=== PATIENT | male | born 1965 | race Caucasian/White ===

== ENCOUNTER 2018-12-09 04:45 | Observation (INO) | payer BC, OTHER ==
[~2018-12-09] VITALS: Ht 180.3 cm; Wt 97.1 kg
[2018-12-09 04:47] VITALS: BP 138/63
--- NOTE | 2018-12-09 04:48 | NUR ---
PT AMBULATED TO ER BED 3
--- NOTE | 2018-12-09 04:48 | NUR ---
53/M BIB , C/O 07/21 INTERMITTENT L UPPER CP. ALSO C/O ACHING L ARM PAIN. DENIES SOB, N/V. PT AOX4, GCS 15, PT WITH EXCESSIVE SPEECH, SKIN NORMAL WARM DRY, RR EVEN AND UNLABORED. LUNG SOUNDS CLEAR BL. HR EVEN AND REGULAR. DENIES MED HX; REPORTS RECENT FLU; FINISHED RX Z-PACK; RX TESTOSTERONE EVERY WEEK; DENIES OTC REPORTS FEELING STRESSED RECENTLY; OCCASIONAL ALCOHOL, CAFFEINE, AND COCAINE USE; RECENT HEAVY LIFTING 4 DAYS AGO
--- NOTE | 2018-12-09 05:00 | NUR ---
DR MONTGOMERY AT BEDSIDE
[2018-12-09] MEDS ORDERED: NACL 0.9% 1,000 ML IV ONE (05:15)
[2018-12-09 05:54] LABS: BARBITURATE, URINE NEG. ng/ml (NEG <=200); BENZODIAZEPINE, URINE NEG. ng/mL (NEG <=200); CANNABINOID, URINE NEG. ng/mL (NEG <=50); COCAINE, URINE NEG. ng/mL (NEG <=300); OPIATE, URINE NEG. ng/mL (NEG <=2000); PHENCYCLIDINE SCREEN,URINE NEG. ng/mL (NEG <=25)
[2018-12-09 06:01] LABS: ANION GAP 12.5 (8-16); CARBON DIOXIDE 27.5 mmol/L (21-32)
[2018-12-09 06:09] LABS: ALBUMIN 3.7 g/dL (3.4-5.0); TOTAL BILIRUBIN 0.5 mg/dL (0.0-1.0)
--- NOTE | 2018-12-09 07:09 | NUR ---
Pt report given to KATHERIN COELHO. Transfer of care at this time.
--- NOTE | 2018-12-09 07:15 | NUR ---
PT ASLEEP. EASILY AROUSABLE BY NAME. AAOX4, FULL CLEAR SPEECH. NO SIGNS AND SYMPTOMS OF DISTRESS NOTED. WILL CONTINUE TO MONITOR.
--- NOTE | 2018-12-09 09:00 | NUR ---
CALLED LAB SPOKE TO JD FOR LAB WORK F/U
[2018-12-09 09:12] LABS: BASOPHILS % (AUTO) 0.6 % (0.0-2.0); EOSINOPHILS # (AUTO) 0.2 K/uL (0-0.4); LYMPHOCYTES # (AUTO) 1.9 K/uL (2.0-11.5); LYMPHOCYTES % (AUTO) 27.7 % (20.5-51.1); MEAN CORPUSCULAR HEMOGLOBIN 27 pg (27-31); MEAN CORPUSCULAR HGB CONC 33 g/dL (33-37); MONOCYTES # (AUTO) 0.8 K/uL (0.8-1.0); MONOCYTES % (AUTO) 11.7 % (1.7-9.3); NEUTROPHILS # (AUTO) 3.8 K/uL (1.8-7.7); PLATELET COUNT (AUTO) 246 K/uL (140-450); RED BLOOD CELL COUNT(AUTO) 5.62 MIL/uL (4.20-6.10); RED CELL DISTRIBUTION WIDTH 14.4 % (11.6-13.7); WHITE BLOOD COUNT (AUTO) 6.7 K/uL (4.8-10.8)
[2018-12-09 10:00] VITALS: BP 119/70
--- NOTE | 2018-12-09 10:00 | NUR ---
RECEIVED BEDSIDE REPORT FROM LARGE ANIMAL HUSBANDRY TECHNICIANKATHERIN COELHO. PT STABLE, AWAKE, ALERT AND ORIENTED X4. NO SIGNS OF DISTRESS NOTED. DENIES CHEST PAIN OR SOB. NO REDNESS, SWELLING, OR INFLAMMATION NOTED ON IV SITE. CALL ABDALLA WITHIN REACH. BED IN LOWEST POSITION. SAFETY MEASURES IN PLACE. PLAN OF CARE REVIEWED.
--- NOTE | 2018-12-09 10:00 | NUR ---
Patient will be admitted to care of Dr Ballard. Admited to Tele . Will go to room 112 B. Belongings list completed. Report to KATHERIN Forrest.
[2018-12-09] MEDS ORDERED: ONDANSETRON 4 MG/2 ML VIAL IVP PRN (10:15)
[2018-12-09] MEDS ORDERED: NITROGLYCERIN 0.4 MG TAB SL PRN (10:15)
[2018-12-09] MEDS ORDERED: MORPHINE SULFATE 4 MG/ML SYR IV PRN (10:15)
--- NOTE | 2018-12-09 11:10 | NUR ---
DR PAREDES AT THE BEDSIDE.
[2018-12-09 12:00] VITALS: BP 135/77
--- NOTE | 2018-12-09 12:30 | NUR ---
PT STABLE, EATING LUNCH. FAMILY AT THE BEDSIDE. NO OTHER NEEDS AT THIS TIME.
--- NOTE | 2018-12-09 14:10 | NUR ---
PT STABLE, SLEEPING, BUT EASILY AROUSABLE. NO SIGNS OF DISTRESS NOTED.
--- NOTE | 2018-12-09 15:44 | NUR ---
PATIENT HAS BEEN SCREENED AND CATEGORIZED MODERATE NUTRITION RISK. PATIENT WILL BE SEEN WITHIN 3-5 DAYS OF ADMISSION. 12/11/18PAME[address]
[2018-12-09 16:00] VITALS: BP 115/58
--- NOTE | 2018-12-09 16:30 | NUR ---
VITAL SIGNS TAKEN, PT STABLE. FAMILY AT THE BEDSIDE. NO OTHER NEEDS AT THIS TIME.
--- NOTE | 2018-12-09 18:10 | NUR ---
PT STABLE, RESTING ON THE BED. FAMILY AT THE BEDSIDE.
--- NOTE | 2018-12-09 19:05 | NUR ---
ENDORSED PT TO KATHERIN SALDANA FOR CONTINUITY OF CARE. PT STABLE.
--- NOTE | 2018-12-09 19:10 | NUR ---
RECEIVED REPORT FROM DAY SHIFT NURSE. AAOX4. NO C/O PAIN AT THIS TIME. NO SOB NOTED. ON ROOM AIR. IV TO LEFT FA #20G, SALINE LOCK. FAMILY MEMBER AT BEDSIDE. DISCUSSED PLAN OF CARE, PT VERBALIZED UNDERSTANDING. SAFETY PRECAUTION IN PLACE. CALL LIGHT WITHIN REACH.
[2018-12-09 20:00] VITALS: BP 131/79
--- NOTE | 2018-12-09 22:00 | NUR ---
DR. SARMIENTO CAME IN TO SEE PT. NO NEW ORDER AT THIS TIME.
[2018-12-10] VITALS: BP 130/77
--- NOTE | 2018-12-10 | NUR ---
VS CHECKED, WNL. NO C/O PAIN. NO SOB NOTED. CALL LIGHT WITHIN REACH.
--- NOTE | 2018-12-10 03:05 | NUR ---
PT SLEEPING, EASILY AROUSABLE. RESP EVEN AND UNLABORED. NO S/S OF PAIN OR DISCOMFORT.
[2018-12-10 04:00] VITALS: BP 129/76
[2018-12-10 08:00] VITALS: BP 124/66
[2018-12-10 08:02] LABS: ANION GAP 9.2 (8-16); CREATININE 0.9 mg/dL (0.7-1.3); POTASSIUM 4.2 mmol/L (3.5-5.1)
[2018-12-10 08:21] LABS: BASOPHILS % (AUTO) 0.4 % (0.0-2.0); EOSINOPHILS # (AUTO) 0.4 K/uL (0-0.4); EOSINOPHILS % (AUTO) 6.6 % (0.0-4.0); HEMATOCRIT 46.1 % (36-52); HEMOGLOBIN 15.4 g/dL (12.0-18.0); LYMPHOCYTES # (AUTO) 2.1 K/uL (2.0-11.5); LYMPHOCYTES % (AUTO) 31.5 % (20.5-51.1); MEAN CORPUSCULAR HEMOGLOBIN 27 pg (27-31); MEAN CORPUSCULAR HGB CONC 34 g/dL (33-37); MEAN CORPUSCULAR VOLUME 81.7 fL (80-94); MONOCYTES # (AUTO) 0.7 K/uL (0.8-1.0); MONOCYTES % (AUTO) 10.9 % (1.7-9.3); NEUTROPHILS # (AUTO) 3.3 K/uL (1.8-7.7); NEUTROPHILS % (AUTO) 50.6 % (42.2-75.2); PLATELET COUNT (AUTO) 204 K/uL (140-450); RED BLOOD CELL COUNT(AUTO) 5.65 MIL/uL (4.20-6.10); RED CELL DISTRIBUTION WIDTH 14.4 % (11.6-13.7); WHITE BLOOD COUNT (AUTO) 6.6 K/uL (4.8-10.8)
[2018-12-10] MEDS ORDERED: ASPIRIN 81 MG TAB.CHEW PO SCH (09:00)
--- NOTE | 2018-12-10 09:59 | NUR ---
ADMINISTERED SCHEDULED MEDICATION, PT TOLERATED WELL. NO OTHER NEEDS AT THIS TIME.
--- NOTE | 2018-12-10 11:18 | NUR ---
PAGED DR DIEHL REGARDING IF PT IS CLEARED FOR DISCHARGE.
--- NOTE | 2018-12-10 11:30 | NUR ---
PAGED DR DIEHL AGAIN.
--- NOTE | 2018-12-10 11:40 | NUR ---
SPOKE WITH DR DIEHL AND RECEIVED TELEPHONE ORDER FOR PT'S DISCHARGE. INFORMED DR DIEHL THAT PT HAS BEEN CLEARED BY DR RACHEL SARMIENTO. WILL PUT IN DISCHARGE ORDER.
[2018-12-10 12:00] VITALS: BP 132/84
--- NOTE | 2018-12-10 12:30 | NUR ---
D/C INSTRUCTIONS AND PAPERWORK GIVEN, PT VERBALIZED UNDERSTANDING. QUESTIONS AND CONCERNS WERE ADDRESSED. PT PULLED OUT IV, CATHETER TIP INTACT, BLEEDING CONTROLLED. PT STABLE, A&O X4, COMMUNICATES APPROPRIATELY. SKIN INTACT. FAMILY AT THE BEDSIDE. PT TOOK ALL BELONGINGS HOME. ESCORTED PT AND FAMILY TO THE LOBBY.
--- NOTE | 2018-12-12 11:30 | NUR ---
Late entry. Confirmed with RN that 1000 ml 0.9NS IV bolus ended at 0615.
--- NOTE | 2018-12-13 11:30 | NUR ---
CALLED OFFICE OF DR TITUS MARC [phone], SPOKE TO MAGALY, FOLLOW-UP APPOINTMENT MADE ON 12/23/18 AT 1130 AM , [id number], [place] [address]. FAX PATIENT INFO TO CLINIC [phone]. CALLED PATIENT AND LEFT MESSAGE [phone], WAITING FOR CALL BACK.
--- NOTE | 2018-12-13 13:46 | NUR ---
CALLED AND LEFT MESSAGE AGAIN TO PATIENT [phone], WAITING FOR CALL BACK.
--- NOTE | 2018-12-15 12:45 | NUR ---
CALLED AND SPOKE TO PATIENT MOSHE WALTERS, , NOTIFIED PATIENT THAT FOLLOW-UP APPOINTMENT MADE TO SEE DR MARC ON 12/23/18 @ 1130 AM AT [id number], [place] [address] , . APPOINTMENT DETAILS GIVEN TO PATIENT, VERBALIZED UNDERSTANDING.
== END 2018-12-10 12:30 | disposition home or self-care (01) ==
LOC: MED 04:45 → MTU 09:38
PROVIDERS: ADMIT Internal Medicine; ATTEND Internal Medicine
DX: R07.89 Other chest pain (principal); E66.9 Obesity, unspecified
CPT/HCPCS: 36415; 71045; 80048; 80053; 80305; 83880; 84484; 85025; 87081; 93005; 93307; 99285; G0378; Q0092

== ENCOUNTER 2019-11-30 17:24 | Emergency (ER) | payer OTHER ==
[~2019-11-30] VITALS: Ht 177.8 cm; Wt 95.3 kg
[2019-11-30 17:27] VITALS: BP 138/82
--- NOTE | 2019-11-30 17:32 | NUR ---
PT AMBULATED TO ER BED 07
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
--- NOTE | 2019-11-30 19:15 | NUR ---
RECIEVED REPORT FROM KATHERIN AGUILAR. TRANSFER OF CARE AT THIS TIME.
--- NOTE | 2019-11-30 19:15 | NUR ---
Dr. Cee examining patient.
[2019-11-30] MEDS ORDERED: LIDOCAINE 2% 1000 MG/50 ML VIAL INJ ONE (19:25)
--- NOTE | 2019-11-30 19:29 | NUR ---
PT RESTING IN COMFORTABLY IN BED, EQUAL CHEST RISE AND FALL. PT STATES THAT HE IS NO PAIN AT THIS TIME. BED LOCKED AND IN LOWEST POSITION.
[2019-11-30] MEDS ORDERED: IBUPROFEN 800 MG TAB PO ONE (20:20)
[2019-11-30 20:36] VITALS: BP 138/82
--- NOTE | 2019-11-30 20:36 | NUR ---
Patient discharged with v/s stable. Written and verbal after care instructions given and explained. Patient alert, oriented and verbalized understanding of instructions. Ambulatory with steady gait. All questions addressed prior to discharge. ID band removed. Patient advised to follow up with PMD. Rx of KEFLEX, MOTRIN, BACTRIM given. Patient educated on indication of medication including possible reaction and side effects. Opportunity to ask questions provided and answered.
== END 2019-11-30 20:36 | disposition home or self-care (01) ==
LOC: MED 17:24
DX: S81.811A Laceration without foreign body, right lower leg, initial encounter (principal); N49.2 Inflammatory disorders of scrotum; I10 Essential (primary) hypertension; W45.8XXA Other foreign body or object entering through skin, initial encounter; Y93.89 Activity, other specified; Y92.89 Other specified places as the place of occurrence of the external cause; Y99.8 Other external cause status
CPT/HCPCS: 12004; 55100; 90471; 90715; 99284; J2001

== ENCOUNTER 2019-12-02 18:27 | Emergency (ER) | payer OTHER ==
[~2019-12-02] VITALS: Ht 177.8 cm; Wt 95.3 kg
[2019-12-02 18:38] VITALS: BP 140/88
--- NOTE | 2019-12-02 18:40 | NUR ---
WAIT AT LOBBY.
--- NOTE | 2019-12-02 18:49 | NUR ---
PT TAKEN TO BED 7.
--- NOTE | 2019-12-02 18:49 | NUR ---
PT PRESENTS TO THE ER FOR WOUND CHECK. I & D IMPLEMENTED TO R&L SCROTAL SAC 2 DAYS AGO IN [facility] ER; OLD LAC WOUNDS WITH CLOSURE OF STERI STRIP & DERMABOND IN PLACE. PT DENIES ANY FEVER, CP, SOB, OR COUGH AT THIS TIME; PATIENT STATES PAIN OF 8/10 AT THIS TIME; VSS; PATIENT POSITIONED FOR COMFORT; HOB ELEVATED; BEDRAILS UP X1; BED DOWN. ER MD MADE AWARE OF PT STATUS.
--- NOTE | 2019-12-02 19:17 | NUR ---
Pt report given to KATHERIN Palomares. Transfer of care at this time.
--- NOTE | 2019-12-02 19:20 | NUR ---
REPORT RECIVED BY MARIAA PANDEY. CONTINUATION OF CARE.
[2019-12-02] MEDS ORDERED: BACITRACIN OINT 500 UNITS/GM PKT TP ONE (19:35)
[2019-12-02] MEDS ORDERED: HYDROcodone/APAP 5/325 MG 1 TAB TAB PO ONE (19:35)
--- NOTE | 2019-12-02 19:55 | NUR ---
NORCO 5/325 MG GIVEN PO FOR 8/10 PAIN IN SCROTAL AREA.
--- NOTE | 2019-12-02 20:19 | NUR ---
WOUND CARE BEING PERFORMED BY ERMD AND EMT AT BEDSIDE.
[2019-12-02 20:25] VITALS: BP 128/88
--- NOTE | 2019-12-02 20:25 | NUR ---
Patient discharged with v/s stable. Written and verbal after care instructions given and explained. Patient alert, oriented and verbalized understanding of instructions. Ambulatory with steady gait. All questions addressed prior to discharge. ID band removed. Patient advised to follow up with PMD. Rx of NORCO 5/325MG given. Patient educated on indication of medication including possible reaction and side effects. Opportunity to ask questions provided and answered.
--- NOTE | 2019-12-02 21:39 | NUR ---
PLACED BACITRACIN ON PT'S WOUNDS AND COVERED PT'S WOUNDS WITH NON-ADH BANDAGE AND TAPE.
== END 2019-12-02 20:25 | disposition home or self-care (01) ==
LOC: MED 18:27
DX: N45.4 Abscess of epididymis or testis (principal); Z98.890 Other specified postprocedural states
CPT/HCPCS: 99283

== ENCOUNTER 2019-12-04 15:35 | Emergency (ER) | payer OTHER ==
[~2019-12-04] VITALS: Ht 177.8 cm; Wt 95.3 kg
[2019-12-04 15:41] VITALS: BP 145/72
--- NOTE | 2019-12-04 15:44 | NUR ---
pt ambulated to er bed 04
--- NOTE | 2019-12-04 15:50 | NUR ---
DR. CASTRO EVALUATING PT AT BEDSIDE
--- NOTE | 2019-12-04 15:54 | NUR ---
54/M PRESENTS FOR WOUND CHECK. HAD I&D OF RIGHT AND LEFT SCROTAL SACS ON 11/30/19 WITH PACKING. PACKING HAS BEEN COMING OUT OF WOUNDS. WITH PURULENT DRAINAGE NOTED ON PACKING MATERIAL. PT STATES THE WOUNDS LOOK BETTER/SMALLER THAN BEFORE. NO F/C. PT IS TAKING PREVIOUSLY PRESCRIBED ABX. PAIN 10/19 HX- DENIES
--- NOTE | 2019-12-04 16:02 | NUR ---
Patient discharged with v/s stable. Written and verbal after care instructions given and explained. Patient alert, oriented and verbalized understanding of instructions. Ambulatory with steady gait. All questions addressed prior to discharge. ID band removed. Patient advised to follow up with PMD. Rx of BACTRIM, KEFLEX, NORCO given. Patient educated on indication of medication including possible reaction and side effects; PT INSTRUCTED BY DR. CASTRO TO FILL RX FOR BACTRIM AND KEFLEX AFTER CURRENT ABX ARE COMPLETE; WARM COMPRESS TO SCROTAL SACS. Opportunity to ask questions provided and answered.
[2019-12-04 16:03] VITALS: BP 145/72
== END 2019-12-04 16:02 | disposition home or self-care (01) ==
LOC: MED 15:35
DX: N50.819 Testicular pain, unspecified (principal); L53.9 Erythematous condition, unspecified; Z48.00 Encounter for change or removal of nonsurgical wound dressing
CPT/HCPCS: 99283

== ENCOUNTER 2019-12-14 14:52 | Emergency (ER) | payer OTHER ==
[~2019-12-14] VITALS: Ht 177.8 cm; Wt 97.1 kg
--- NOTE | 2019-12-14 14:59 | NUR ---
PT AMBULATED TO ER BED 06
[2019-12-14 15:05] VITALS: BP 132/52
--- NOTE | 2019-12-14 15:19 | NUR ---
PT C/O WOUND TO RT LEG. PT CAME IN FOR A RECHECK ON RT LEG WOUND. PT STATES WOUND IN RT LEG WEEK AND 1/2 AGO. NO ACTIVE BLEEDINIG. NO DRAINAGE. NO FOUL ODOR. REDDNESS AROUND OPENING OF WOUND. MINOR SWELLING AROUND OPENING OF WOUND. PT IS COMFORTABLE IN BED. PT STATES NO PAIN AT THIS TIME. NO PMHX NKA, NKDA
--- NOTE | 2019-12-14 15:20 | NUR ---
DR MONTGOMERY AT BEDSIDE
[2019-12-14 15:49] VITALS: BP 132/52
--- NOTE | 2019-12-14 15:49 | NUR ---
Patient discharged with v/s stable. Written and verbal after care instructions given and explained. Patient alert, oriented and verbalized understanding of instructions. Ambulatory with steady gait. All questions addressed prior to discharge. ID band removed. Patient advised to follow up with PMD. Rx of KELEX 50MG CAP, BACTRIM DS 800MG-160MG TAB, BACITRACIN 500UNIT/G TOPICAL given. Patient educated on indication of medication including possible reaction and side effects. Opportunity to ask questions provided and answered.
== END 2019-12-14 15:49 | disposition home or self-care (01) ==
LOC: MED 14:52
DX: M25.471 Effusion, right ankle (principal)
CPT/HCPCS: 99283

== ENCOUNTER 2019-12-30 13:11 | Emergency (ER) | payer OTHER ==
[~2019-12-30] VITALS: Ht 177.8 cm; Wt 97.5 kg
--- NOTE | 2019-12-30 13:14 | NUR ---
Patient ambulated to bed 6. RN evaluating patient at bedside.
[2019-12-30 13:17] VITALS: BP 113/75
--- NOTE | 2019-12-30 13:30 | NUR ---
54/M presents to ED for evaluation of wound. Pt has had open wound to right lower leg x1 month. Patient states wound has improved but states "I think I need more antibiotics." Patient reports small serous drainage from wound. Denies fever or chills. Wound covered with non adherent and paper tape. Patient c/o mild pain 3/10 to area.
[2019-12-30] MEDS ORDERED: BACITRACIN OINT 500 UNITS/GM PKT TP ONE ×2 (14:29→14:35)
--- NOTE | 2019-12-30 14:37 | NUR ---
BACITRACIN APPLIED TO PT'S WOUND, WOUND WRAPED WITH NON-ADHERENT AND 3" GUAZE ROLL
[2019-12-30 14:42] VITALS: BP 131/78
== END 2019-12-30 14:42 | disposition home or self-care (01) ==
LOC: MED 13:11
DX: S81.801D Unspecified open wound, right lower leg, subsequent encounter (principal); Z48.00 Encounter for change or removal of nonsurgical wound dressing; X58.XXXA Exposure to other specified factors, initial encounter; Y93.89 Activity, other specified; Y92.89 Other specified places as the place of occurrence of the external cause; Y99.8 Other external cause status
CPT/HCPCS: 99282

== ENCOUNTER 2020-01-13 09:34 | Emergency (ER) | payer OTHER ==
[~2020-01-13] VITALS: Ht 180.3 cm; Wt 99.8 kg
[2020-01-13 09:39] VITALS: BP 134/80
--- NOTE | 2020-01-13 09:45 | NUR ---
DR. TO EVALUATING PT AT BEDSIDE
--- NOTE | 2020-01-13 09:45 | NUR ---
Patient to bed 11. RN evaluating patient at bedside.
[2020-01-13] MEDS ORDERED: BACITRACIN OINT 500 UNITS/GM PKT TP ONE ×2 (09:50)
--- NOTE | 2020-01-13 09:52 | NUR ---
54/M requesting wound check of right lower extremity. Seen here multiple times for the same wound. Pt is requesting refill of Keflex and Bactrim DS Hx- denies
[2020-01-13 10:04] VITALS: BP 128/78
--- NOTE | 2020-01-13 10:04 | NUR ---
Patient discharged with v/s stable. Written and verbal after care instructions given and explained. Patient alert, oriented and verbalized understanding of instructions. Ambulatory with steady gait. All questions addressed prior to discharge. ID band removed. Patient advised to follow up with PMD. Rx of Keflex and Bactrim given. Patient educated on indication of medication including possible reaction and side effects. Opportunity to ask questions provided and answered.
== END 2020-01-13 10:04 | disposition home or self-care (01) ==
LOC: MED 09:34
DX: L02.415 Cutaneous abscess of right lower limb (principal); R03.0 Elevated blood-pressure reading, without diagnosis of hypertension
CPT/HCPCS: 99283

== ENCOUNTER 2021-04-02 12:47 | Emergency (ER) | payer OTHER ==
[~2021-04-02] VITALS: Ht 177.8 cm; Wt 96.6 kg
[2021-04-02 12:54] VITALS: BP 149/89
--- NOTE | 2021-04-02 13:05 | NUR ---
Patient ambulated to bed 11 with steady/even gait
--- NOTE | 2021-04-02 13:10 | NUR ---
Jenny moser in EDM - 04/02/21 at 1315 by BRIDGETT 55/M presents to ED with c/o dizziness x3 days. Patient states he recently received on
--- NOTE | 2021-04-02 13:11 | NUR ---
55/M presents to ED with c/o dizziness x3 days. Patient states he recently received his first covid vaccine on 03/18/21 and was having cold symptoms, states he was seen at urgent care and given RX of amoxicillin, states after cold symptoms resolved he began feeling dizzy with no relief. Denies headache, blurred vision, N/V/D, cp, sob, fever or chills.
[2021-04-02] MEDS ORDERED: MECL-303 PO (13:24)
[2021-04-02 13:29] VITALS: BP 149/89
[2021-04-02] MEDS ORDERED: FLONAS NS (13:29)
--- NOTE | 2021-04-02 13:30 | NUR ---
Patient discharged with v/s stable. Written and verbal after care instructions given and explained. Patient alert, oriented and verbalized understanding of instructions. Ambulatory with steady gait. All questions addressed prior to discharge. ID band removed. Patient advised to follow up with PMD. Rx of MECLAZINE given. Patient educated on indication of medication including possible reaction and side effects. Opportunity to ask questions provided and answered.
== END 2021-04-02 13:30 | disposition home or self-care (01) ==
LOC: MED 12:47
DX: R42 Dizziness and giddiness (principal); R09.89 Other specified symptoms and signs involving the circulatory and respiratory systems; Z79.899 Other long term (current) drug therapy
CPT/HCPCS: 99282

== ENCOUNTER 2021-05-26 13:34 | Emergency (ER) | payer OTHER ==
[~2021-05-26] VITALS: Ht 177.8 cm; Wt 98.0 kg
[~2021-05-26 13:34] MED LIST: FLONAS NS; MECL-303 PO
[2021-05-26 13:41] VITALS: BP 150/88
--- NOTE | 2021-05-26 14:40 | NUR ---
FIDE MENSAH AT BEDSIDE TO ASSESS PT.
--- NOTE | 2021-05-26 14:40 | NUR ---
55 Y/O MALE BIB SELF FROM HOME, C/O SPIDER BITE 1 WEEK AGO, WAS SEEN AT URGENT CARE FOR SAME CC AND WAS GIVEN AMOXICILLIN. LEFT ELBOW IS NOTED WITH OPEN CIRCULAR AREA WITH A PUS-LIKE SUBSTANCE OOZING OUT. PERIWOUND AREA IS TENDER TO TOUCH, WARM, AND RED. AFEBRILE. ALL OTHER SYSTEMS WNL. PMH: DENIES NKA MED: AMOXICILLIN (RX BY URGENT CARE)
[2021-05-26] MEDS ORDERED: CEPH500C16 PO (14:42)
[2021-05-26] MEDS ORDERED: BACI1PAC6 TP (14:56)
[2021-05-26 15:00] VITALS: BP 141/80
== END 2021-05-26 15:00 | disposition home or self-care (01) ==
LOC: MED 13:34
DX: S50.862A Insect bite (nonvenomous) of left forearm, initial encounter (principal); L03.114 Cellulitis of left upper limb; Z79.899 Other long term (current) drug therapy; W57.XXXA Bitten or stung by nonvenomous insect and other nonvenomous arthropods, initial encounter; Y93.89 Activity, other specified; Y92.89 Other specified places as the place of occurrence of the external cause; Y99.8 Other external cause status
CPT/HCPCS: 99283